=== PATIENT | female | born 1950 | race Caucasian/White ===

== ENCOUNTER 2016-09-02 14:59 | Emergency (ER) | payer BC ==
[~2016-09-02] VITALS: Ht 175.3 cm; Wt 101.6 kg
[2016-09-02 15:08] VITALS: TEMP 36.8; Ht 175.3 cm; Wt 101.6 kg
[2016-09-02] MEDS ORDERED: ONDANSETRON INJ 2 MG/ML 2 ML VIAL IV PRN (15:15)
[2016-09-02] MEDS ORDERED: MoRPHine SULFATE 10 MG/ML CARP/VIAL IV PRN (15:15)
[2016-09-02] MEDS ORDERED: SODIUM CHLORIDE 0.9% 1000ML 1,000 ML IV STA (15:15)
--- NOTE | 2016-09-02 15:27 | EMERGENCY ROOM VISIT NOTE ---
History Report prepared by Candice: Dedra Toro Under the Supervision of: Dr. Timothy Zavala M.D. First contact with patient: 15:05 Stated Complaint: CHEST PAIN History of Present Illness The patient is a 66 year old female who presents to the Emergency Room with complaints of constant right sided rib pain beginning last night. She rates her pain as 10/10 in severity. The patient states that she got up in the middle of the night when she felt the sharp stabbing pain to her right side. She notes that movement worsens the pain and laying still relieves the pain. The patient also states that taking a deep breath worsens her pain. She experiences shortness of breath with talking and movement. The patient is also experiencing right side abdominal pain. She denies this type of pain before, pneumonia history, blood clot history of cough. She does have a history of breast cancer since 2006. She had a lymphotomy and chemo radiation done and was in remission until November 2015. Since then the cancer has spread from being metastatic breast cancer to also be stage 4 and in her bone. Source of History: patient Onset: last night Position: other (right rib) Symptom Intensity: 10/10 in severity Quality: sharp, stabbing Timing: worsening Modifying Factors (Worsening): breathing, movement Modifying Factors (Relieving): rest Associated Symptoms: + SOB (with talking and movement), + abdominal pain Note: The patient denies having this type of pain before. Review of Systems All systems have been listed, reviewed, and are negative other than those previously mentioned. Please see Additional Medical History Sheet. Past Medical & Surgical Medical Problems: (1) Hypertension Family History Patient reports no known family medical history. Social History Smoking Status: Never Smoker Smokeless Tobacco Use: No Alcohol Use: occasionally Marital Status: Housing Status: lives with family Occupation Status: retired Current/Historical Medications Scheduled Docusate Sodium (Colace), 100 MG PO BID Ferrous Sulfate (Kp Ferrous Sulfate), 1 TAB PO HS Fulvestrant (Faslodex), 1 DOSE IM MONTHLY Iodine (Kelp) (Kelp), Unknown Dose PO DAILY Lisinopril/Hctz (Zestoretic 20MG/12.5MG), 1 TAB PO HS Multiple Vitamin (Multivitamin), 1 TAB PO DAILY Palbociclib (Ibrance), Unknown Dose PO DAILY Turmeric (Curcuma Longa) (Turmeric), 1 CAP PO DAILY Zoledronic Acid (Zometa), 1 DOSE IV MONTHLY Scheduled PRN Oxycodone/Acetaminophen 5MG/325MG (Percocet 5MG/325MG), 1-2 TABLETS PO Q4H PRN for Pain Allergies Coded Allergies: No Known Allergies (Unverified , 09/02/16) Physical Exam Vital Signs Date Time Temp Pulse Resp B/P Pulse Ox O2 Delivery O2 Flow Rate FiO2 09/02/16 16:32 132/63 09/02/16 16:21 81 20 93 09/02/16 16:06 83 23 92 09/02/16 16:01 134/76 09/02/16 15:59 81 20 93 09/02/16 15:32 130/62 09/02/16 15:29 82 24 09/02/16 15:08 Room Air 09/02/16 15:08 36.8 82 20 134/77 95 Room Air 09/02/16 15:06 83 09/02/16 15:05 134/77 Physical Exam GENERAL: Patient awake, alert, oriented x 3. Patient follows commands. Patient does not appear toxic. Patient is adequately hydrated and well- nourished. SKIN: No erythema, pallor, cyanosis or rash HEENT: Normal head, pupils equal, reactive to light and accommodation. Ears normal. Oral cavity and posterior pharynx appear normal. Neck: Without adenopathy, no neck vein distention. LUNGS: Clear to auscultation. No wheezes, no rales, no rhonchi. Severe pain with any inspiration. HEART: No murmurs. No gallops. No rubs ABDOMEN: Right upper quadrant tenderness. No lower abdominal tenderness. No masses, no rebound, no hepatomegaly or splenomegaly. EXTREMITIES: No signs of trauma. No pedal or pretibial edema. No calf or thigh tenderness. NEUROLOGIC: Cranial nerves II-XII within normal limits. No gross motor sensory function deficits. Medical Decision & Procedures ER Provider Diagnostic Interpretation: Radiology results as stated below per my review and radiologist interpretation: SINGLE VIEW CHEST CLINICAL HISTORY: Right-sided chest pain. FINDINGS: An AP, portable, upright chest radiograph is obtained. No prior studies are available for comparison at the time of dictation. The examination is degraded by portable technique, large body habitus, and patient rotation. The heart is mildly enlarged. The external contour is within normal limits. There is mild elevation of the right hemidiaphragm. A calcified granuloma is noted in the left upper lobe. No airspace consolidation or pleural effusion is identified. No pneumothorax is seen. The skeletal structures are osteopenic. The bony thorax is grossly intact. Degenerative change and mild scoliosis are noted in the thoracic spine. IMPRESSION: Mild cardiac enlargement with no acute cardiopulmonary abnormality. Electronically signed by: Scott Azar M.D. 09/02/2016 3:53 PM Dictated Date/Time: 09/02/2016 3:[address] SCAN OF THE ABDOMEN AND PELVIS WITH IV CONTRAST CLINICAL HISTORY: Right-sided abdominal pain. COMPARISON STUDY: No priors. TECHNIQUE: Following the IV administration of 119 cc of Optiray 320, CT scan of the abdomen and pelvis is performed from the lung bases to the proximal femora. Images are reviewed in the axial, sagittal, and coronal planes. IV contrast was administered without complication. Automated dose control exposure was utilized. CT DOSE: 881.24 mGy.cm FINDINGS: Lung bases: The heart is normal in size and there is trace pericardial effusion. The lung bases are clear noting dependent atelectasis. A tiny hiatal hernia is noted. There is an indeterminant 3.1 cm irregular density in the right breast seen on axial image #35. Liver: The contrast-enhanced liver is enlarged, measuring 25.3 cm in length. There is evidence of diffuse/multifocal hepatic metastatic disease. This is present throughout all hepatic lobes. There is no intrahepatic biliary ductal dilatation. The hepatic veins and portal veins are patent. Gallbladder: Unremarkable. Spleen: Normal in size and attenuation. There are calcified splenic granulomas. Pancreas: Moderately atrophic and grossly unremarkable. Adrenal glands: Unremarkable. Kidneys: The contrast enhanced kidneys demonstrate cortical atrophy and are without hydronephrosis. The kidneys enhance symmetrically. A circumaortic left renal vein is incidentally noted. Abdominal vasculature: The abdominal aorta is normal in course and caliber noting mild to moderate atherosclerotic calcification. Bowel: The small bowel and colon are normal in course and caliber. There are scattered colonic diverticula without CT evidence of acute diverticulitis. The appendix is well-visualized and normal. Peritoneum: There is trace perihepatic ascites as well as trace free fluid in the pelvis. No intraperitoneal free air is seen. Lymphadenopathy: None. Pelvic viscera: The bladder, uterus, and adnexa are normal as visualized. There is a moderate fat-containing right inguinal hernia. Skeletal structures: The skeletal structures are osteopenic. There is evidence of diffuse/multifocal osteoblastic metastatic disease. There are numerous healed bilateral rib fractures. Note that a large lesion in the left femoral neck may place the patient at risk for pathologic fracture. IMPRESSION: 1. The liver is enlarged and there is evidence of diffuse/multifocal hepatic metastatic disease. 2. There is diffuse/multifocal osteoblastic metastatic disease. This is identified throughout all of the visualized bony structures. 3. Correlation with the patient's oncological history will be essential. If there is no known cancer history, breast cancer would be the most likely etiology based on the pattern of metastatic disease although this is not definitive. 4. An irregular 3.1 cm density is identified in the right breast. This is indeterminant. Correlation with the medical history, physical examination findings, and follow-up mammogram is recommended. 5. There are numerous healed bilateral rib fractures. No definite acute pathologic fracture is seen on today's examination. 6. There is trace abdominopelvic ascites. 7. Additional changes as above. Electronically signed by: Scott Azar M.D. 09/02/2016 5:17 PM Dictated Date/Time: 09/02/2016 5:04 PM Laboratory Results 09/02/16 14:35 Red Blood Count 2.94, Mean Corpuscular Volume 114.3, Mean Corpuscular Hemoglobin 39.1, Mean Corpuscular Hemoglobin Concent 34.2, Mean Platelet Volume 9.5, Neutrophils (%) (Auto) 77.9, Lymphocytes (%) (Auto) 11.7, Monocytes (%) ( Auto) 9.3, Eosinophils (%) (Auto) 0.7, Basophils (%) (Auto) 0.4, Neutrophils # ( Auto) 2.19, Lymphocytes # (Auto) 0.33, Monocytes # (Auto) 0.26, Eosinophils # ( Auto) 0.02, Basophils # (Auto) 0.01 09/02/16 14:35 Test 09/02/16 14:35 White Blood Count 2.81 K/uL (4.8-10.8) Red Blood Count 2.94 M/uL (4.2-5.4) Hemoglobin 11.5 g/dL (12.0-16.0) Hematocrit 33.6 % (37-47) Mean Corpuscular Volume 114.3 fL (80-100) Mean Corpuscular Hemoglobin 39.1 pg (25-34) Mean Corpuscular Hemoglobin Concent 34.2 g/dl (32-36) Platelet Count 230 K/uL (130-400) Mean Platelet Volume 9.5 fL (7.4-10.4) Neutrophils (%) (Auto) 77.9 % Lymphocytes (%) (Auto) 11.7 % Monocytes (%) (Auto) 9.3 % Eosinophils (%) (Auto) 0.7 % Basophils (%) (Auto) 0.4 % Neutrophils # (Auto) 2.19 K/uL (1.4-6.5) Lymphocytes # (Auto) 0.33 K/uL (1.2-3.4) Monocytes # (Auto) 0.26 K/uL (0.11-0.59) Eosinophils # (Auto) 0.02 K/uL (0-0.5) Basophils # (Auto) 0.01 K/uL (0-0.2) RDW Standard Deviation 69.3 fL (36.4-46.3) RDW Coefficient of Variation 16.8 % (11.5-14.5) Immature Granulocyte % (Auto) 0.0 % Immature Granulocyte # (Auto) 0.00 K/uL (0.00-0.02) Polychromasia 1+ Macrocytosis PRESENT Tear Drop Cells 1+ Prothrombin Time 11.7 SECONDS (9.0-12.0) Prothromb Time International Ratio 1.1 (0.9-1.1) Activated Partial Thromboplast Time 26.1 SECONDS (21.0-31.0) Partial Thromboplastin Ratio 1.0 Anion Gap 10.0 mmol/L (3-11) Est Creatinine Clear Calc Drug Dose 107.6 ml/min Estimated GFR () 107.7 Estimated GFR (Non- 92.9 BUN/Creatinine Ratio 21.2 (10-20) Calcium Level 8.7 mg/dl (8.5-10.1) Total Bilirubin 0.9 mg/dl (0.2-1) Aspartate Amino Transf (AST/SGOT) 344 U/L (15-37) Alanine Aminotransferase (ALT/SGPT) 133 U/L (12-78) Alkaline Phosphatase 374 U/L (45-117) Troponin I < 0.015 ng/ml (0-0.045) Total Protein 7.4 gm/dl (6.4-8.2) Albumin 3.2 gm/dl (3.4-5.0) Globulin 4.2 gm/dl (2.5-4.0) Albumin/Globulin Ratio 0.8 (0.9-2) Chemistry Specimen Hemolysis Hepatitis B Surface Antigen NEG (NEG) Laboratory results as stated above per my review. Medications Administered Medications (Trade) Dose Ordered Sig/Karine Route Start Time Stop Time Status Last Admin Dose Admin Morphine Sulfate (MoRPHine SULFATE INJ) 8 mg Q1H PRN IV 09/02/16 15:15 09/16/16 15:14 09/02/16 15:34 8 MG Ondansetron HCl 4 mg 4 mg Q1HWA PRN IV 09/02/16 15:15 10/02/16 15:14 09/02/16 15:33 4 MG Sodium Chloride (Nss 1000ml) 1,000 ml @ 300 mls/hr Q3H20M STAT IV 09/02/16 15:15 09/02/16 18:34 09/02/16 15:33 300 MLS/HR ECG Indication: chest pain Rate (beats per minute): 83 Rhythm: normal sinus Findings: no acute ischemic change, no ectopy ED Course 1506: Past medical records reviewed. The patient was evaluated in room B9. A complete history and physical examination was performed. 1515: Sodium Chloride 1,000 ml @ 300 mls/hr IV, Zofran Inj 4 mg IV, Morphine Sulfate Inj 8 mg IV. 1717: I spoke with Dr. Azar - Radiology about the patient and her imaging results. 1720: I discussed imaging results with the patient. 1735: Upon reevaluation, the patient appeared to have improvement of her symptoms. I discussed today's findings with her. She verbalized agreement of the treatment plan. She was discharged home. Medical Decision Nurses notes reviewed. Medical history sheet reviewed. Differential diagnosis includes but is not limited to: pulmonary embolism, pulmonary infarction, pneumothorax, pneumonia, metastatic neoplasm. Medication Reconciliation: I attest that I have personally reviewed the patient' s current medication list. Blood pressure Screening: Patient was found to have normal blood pressure on screening and does not require follow up. Multiple labs and imaging were obtained. Please see above. The patient is here with right-sided pleuritic pain. Initially it was difficult to discern whether the pain was coming from above or below the diaphragm. Chest x-ray was unremarkable but CT of her abdomen revealed multiple pathologic rib fractures and liver with significant metastasis. Most likely the pain is coming from her rib fractures but remains a possibility that she is having pain from a swollen liver. The patient was told the past that she had metastasis. The patient is followed closely by her family physician and oncologist. She was encouraged to see them as soon as possible. In the meantime the patient was given a prescription for Percocet and Colace. [place] Drug Monitoring Program Search Results: patient reviewed within database (no findings found) Consults Time Called: 1714 Consulting Physician: Dr. Azar - Radiology Returned Call: [phone] Nissa Bowie about the patient and her imaging results. Impression Primary Impression: Multiple rib fractures Additional Impression: Metastatic breast cancer Scribe Attestation The scribe's documentation has been prepared under my direction and personally reviewed by me in its entirety. I confirm that the note above accurately reflects all work, treatment, procedures, and medical decision making performed by me. Departure Information Dispostion Home / Self-Care Prescriptions Docusate Sodium (COLACE) 100 Mg Cap 100 MG PO BID for 15 Days, #30 CAP Prov: Timothy Zavala M.D. 09/02/16 Oxycodone/Acetaminophen 5MG/325MG (PERCOCET 5MG/325MG) Tab 1-2 TABLETS PO Q4H Y for Pain, #20 TAB Prov: Timothy Zavala M.D. 09/02/16 Forms HOME CARE DOCUMENTATION FORM, IMPORTANT VISIT INFORMATION Patient Instructions [facility] Additional Instructions 1-2 Percocet every 4 hours as needed for moderate to severe pain. Do not drive or operate machinery while taking Percocet. 1 Colace twice a day. Follow-up with your family physician and oncologist as soon as possible. Problem Qualifiers
[2016-09-02] MEDS ORDERED: OPTIRAY 320 IV PRN (15:30)
[2016-09-02 15:49] LABS: BASO % 0.4 %; BASO ABS # 0.01 K/uL (0-0.2); EOS % 0.7 %; HEMATOCRIT 33.6 % (37-47); LYMPH % 11.7 %; LYMPH ABS # 0.33 K/uL (1.2-3.4); MEAN CELL VOLUME 114.3 fL (80-100); MEAN CORPUSCULAR HEMOGLOBIN 39.1 pg (25-34); MEAN CORPUSCULAR HGB CONC 34.2 g/dl (32-36); MEAN PLATELET VOLUME 9.5 fL (7.4-10.4); MONO % 9.3 %; NEUT % 77.9 %; PLATELET COUNT 230 K/uL (130-400); RED BLOOD COUNT 2.94 M/uL (4.2-5.4); WHITE BLOOD COUNT 2.81 K/uL (4.8-10.8)
--- NOTE | 2016-09-02 15:54 | DIAGNOSTIC IMAGING REPORT ---
SINGLE VIEW CHEST CLINICAL HISTORY: Right-sided chest pain. FINDINGS: An AP, portable, upright chest radiograph is obtained. No prior studies are available for comparison at the time of dictation. The examination is degraded by portable technique, large body habitus, and patient rotation. The heart is mildly enlarged. The external contour is within normal limits. There is mild elevation of the right hemidiaphragm. A calcified granuloma is noted in the left upper lobe. No airspace consolidation or pleural effusion is identified. No pneumothorax is seen. The skeletal structures are osteopenic. The bony thorax is grossly intact. Degenerative change and mild scoliosis are noted in the thoracic spine. IMPRESSION: Mild cardiac enlargement with no acute cardiopulmonary abnormality. Electronically signed by: Scott Azar M.D. 09/02/2016 3:53 PM Dictated Date/Time: 09/02/2016 3:49 PM
[2016-09-02 15:57] LABS: INR 1.1 (0.9-1.1); PROTHROMBIN TIME (PATIENT) 11.7 SECONDS (9.0-12.0)
[2016-09-02] MEDS ORDERED: ZOLE1INJ IV (15:57)
[2016-09-02] MEDS ORDERED: PALB75CA PO (15:57)
[2016-09-02] MEDS ORDERED: FULV250I2 IM (15:57)
[2016-09-02] MEDS ORDERED: LISI-787 PO (15:57)
[2016-09-02] MEDS ORDERED: MULTTAB58 PO (15:57)
[2016-09-02] MEDS ORDERED: FERR1TAB13 PO (15:58)
[2016-09-02] MEDS ORDERED: TURM1CAP4 PO (16:00)
[2016-09-02] MEDS ORDERED: IODI1TAB PO (16:00)
[2016-09-02 16:14] LABS: ALB/GLOB RATIO 0.8 (0.9-2); ALKALINE PHOSPHATASE 374 U/L (45-117); ALT/SGPT 133 U/L (12-78); AST/SGOT 344 U/L (15-37); BLOOD UREA NITROGEN 14 mg/dl (7-18); BUN/CREATININE RATIO 21.2 (10-20); CALCIUM 8.7 mg/dl (8.5-10.1); CARBON DIOXIDE 24 mmol/L (21-32); CHLORIDE 104 mmol/L (98-107); CREATININE 0.67 mg/dl (0.60-1.20); GLUCOSE 99 mg/dl (70-99); POTASSIUM 4.7 mmol/L (3.5-5.1); SODIUM 138 mmol/L (136-145)
[2016-09-02 16:17] LABS: COMPLETE YES; POLYCHROMASIA 1+; TEAR DROP CELLS 1+
--- NOTE | 2016-09-02 17:18 | DIAGNOSTIC IMAGING REPORT ---
CT SCAN OF THE ABDOMEN AND PELVIS WITH IV CONTRAST CLINICAL HISTORY: Right-sided abdominal pain. COMPARISON STUDY: No priors. TECHNIQUE: Following the IV administration of 119 cc of Optiray 320, CT scan of the abdomen and pelvis is performed from the lung bases to the proximal femora. Images are reviewed in the axial, sagittal, and coronal planes. IV contrast was administered without complication. Automated dose control exposure was utilized. CT DOSE: 881.24 mGy.cm FINDINGS: Lung bases: The heart is normal in size and there is trace pericardial effusion. The lung bases are clear noting dependent atelectasis. A tiny hiatal hernia is noted. There is an indeterminant 3.1 cm irregular density in the right breast seen on axial image #35. Liver: The contrast-enhanced liver is enlarged, measuring 25.3 cm in length. There is evidence of diffuse/multifocal hepatic metastatic disease. This is present throughout all hepatic lobes. There is no intrahepatic biliary ductal dilatation. The hepatic veins and portal veins are patent. Gallbladder: Unremarkable. Spleen: Normal in size and attenuation. There are calcified splenic granulomas. Pancreas: Moderately atrophic and grossly unremarkable. Adrenal glands: Unremarkable. Kidneys: The contrast enhanced kidneys demonstrate cortical atrophy and are without hydronephrosis. The kidneys enhance symmetrically. A circumaortic left renal vein is incidentally noted. Abdominal vasculature: The abdominal aorta is normal in course and caliber noting mild to moderate atherosclerotic calcification. Bowel: The small bowel and colon are normal in course and caliber. There are scattered colonic diverticula without CT evidence of acute diverticulitis. The appendix is well-visualized and normal. Peritoneum: There is trace perihepatic ascites as well as trace free fluid in the pelvis. No intraperitoneal free air is seen. Lymphadenopathy: None. Pelvic viscera: The bladder, uterus, and adnexa are normal as visualized. There is a moderate fat-containing right inguinal hernia. Skeletal structures: The skeletal structures are osteopenic. There is evidence of diffuse/multifocal osteoblastic metastatic disease. There are numerous healed bilateral rib fractures. Note that a large lesion in the left femoral neck may place the patient at risk for pathologic fracture. IMPRESSION: 1. The liver is enlarged and there is evidence of diffuse/multifocal hepatic metastatic disease. 2. There is diffuse/multifocal osteoblastic metastatic disease. This is identified throughout all of the visualized bony structures. 3. Correlation with the patient's oncological history will be essential. If there is no known cancer history, breast cancer would be the most likely etiology based on the pattern of metastatic disease although this is not definitive. 4. An irregular 3.1 cm density is identified in the right breast. This is indeterminant. Correlation with the medical history, physical examination findings, and follow-up mammogram is recommended. 5. There are numerous healed bilateral rib fractures. No definite acute pathologic fracture is seen on today's examination. 6. There is trace abdominopelvic ascites. 7. Additional changes as above. Electronically signed by: Scott Azar M.D. 09/02/2016 5:17 PM Dictated Date/Time: 09/02/2016 5:04 PM
[2016-09-02] MEDS ORDERED: DOCU-94 PO (17:31)
[2016-09-02] MEDS ORDERED: OXYC-57 PO (17:31)
[2016-09-02 18:39] VITALS: BP 122/67; PULSE 82; O2SAT 99
== END 2016-09-02 18:40 | disposition home or self-care (01) ==
LOC: C.EDB 15:00
DX: S22.43XA Multiple fractures of ribs, bilateral, initial encounter for closed fracture (principal); X58.XXXA Exposure to other specified factors, initial encounter; Z85.3 Personal history of malignant neoplasm of breast; Z92.3 Personal history of irradiation; I10 Essential (primary) hypertension; Z79.82 Long term (current) use of aspirin; Z79.899 Other long term (current) drug therapy